=== PATIENT | female | born 1985 | race Caucasian/White ===

== ENCOUNTER 2018-02-03 15:25 | Outpatient (CLI) | payer OTHER ==
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
== END 2018-02-03 15:26 | disposition home or self-care (01) ==
LOC: SCSRAD 15:25
PROVIDERS: ATTEND Family Medicine
DX: S16.1XXA Strain of muscle, fascia and tendon at neck level, initial encounter (principal)
CPT/HCPCS: 72052